=== PATIENT | male | born 1970 | race Caucasian/White ===

== ENCOUNTER 2021-12-03 13:38 | Observation (INO) | payer OTHER ==
[~2021-12-03] VITALS: Ht 182.8 cm; Wt 184.8 kg
[~2021-12-03 13:38] MED LIST: DIVALPROEX SOD500 MG PO; PERCOCET 325 MG1 TA7 PO
[2021-12-03 13:46] VITALS: BP 165/93
[2021-12-03 20:00] VITALS: BP 162/83
[2021-12-03] MEDS ORDERED: AMLODIPINE BESYL5 MG PO (20:39)
[2021-12-03] MEDS ORDERED: ATENOLOL50 M1 PO (20:39)
[2021-12-03] MEDS ORDERED: VALSARTAN320 MG PO (20:40)
[2021-12-03] MEDS ORDERED: HYDROCHLOROTHIA25 M1 PO (20:40)
[2021-12-03] MEDS ORDERED: CELECOXIB200 M1 PO (20:41)
[2021-12-03] MEDS ORDERED: DIVALPROEX SOD500 M1 PO (20:54)
[2021-12-03 21:20] LABS: BASO % 0.1 % (0.0-1.0); HEMATOCRIT 47.4 % (42.0-52.0); LYMPH % 12.3 % (27.0-41.0); MEAN CELL VOLUME 99.8 fl (80.0-94.0); MEAN CORPUSCULAR HGB 33.7 pg (27.0-31.0); MEAN CORPUSCULAR HGB CONC 33.8 g/dl (33.0-37.0); MEAN PLATELET VOLUME 9.8 fl (9.6-12.3); MONO # 0.1 10*3/uL (0.1-1.0); MONO % 0.7 % (3.0-9.0); NEUT % 86.7 % (47.0-73.0); PLATELET COUNT AUTOMATED 218 10*3/uL (130-400); RED BLOOD COUNT 4.75 10*6/uL (4.50-5.90); WHITE BLOOD COUNT 8.1 10*3/uL (4.8-10.8)
[2021-12-03 21:33] LABS: BUN 5 mg/dl (7-24); CHLORIDE 100 mmol/L (98-107); CREATININE 0.84 mg/dL (0.70-1.30); POTASSIUM 4.2 mmol/L (3.5-5.1); SODIUM 134 mmol/L (136-145)
[2021-12-04] VITALS: BP 155/79
[2021-12-04 05:08] LABS: ALKALINE PHOSPHATASE 63 U/L (45-117); BUN 8 mg/dl (7-24); CHLORIDE 101 mmol/L (98-107); CHOLESTEROL 148 mg/dL (<200); CREATININE 0.84 mg/dL (0.70-1.30); POTASSIUM 4.2 mmol/L (3.5-5.1); SGOT/AST 25 IU/L (3-35); SGPT/ALT 43 U/L (12-78); SODIUM 138 mmol/L (136-145); TOTAL PROTEIN 7.4 gm/dL (6.4-8.2)
[2021-12-04 05:09] LABS: FREE T4 1.08 ng/dl (0.76-1.46)
[2021-12-04 05:14] LABS: LDL CHOLESTEROL 66 mg/dL (9-159); THYROID STIM HORMONE (HS) 0.693 uIU/ml (0.358-4.75); TRIGLYCERIDES 75 mg/dl (<150)
[2021-12-04 06:33] LABS: BASO % 0.1 % (0.0-1.0); HEMATOCRIT 46.1 % (42.0-52.0); LYMPH # 1.5 10*3/uL (1.3-4.4); LYMPH % 16.2 % (27.0-41.0); MEAN CELL VOLUME 101.3 fl (80.0-94.0); MEAN CORPUSCULAR HGB 34.7 pg (27.0-31.0); MEAN CORPUSCULAR HGB CONC 34.3 g/dl (33.0-37.0); MEAN PLATELET VOLUME 10.7 fl (9.6-12.3); MONO # 0.2 10*3/uL (0.1-1.0); MONO % 2.5 % (3.0-9.0); NEUT # 7.4 10*3/uL (2.3-7.9); NEUT % 80.9 % (47.0-73.0); PLATELET COUNT AUTOMATED 227 10*3/uL (130-400); RED BLOOD COUNT 4.55 10*6/uL (4.50-5.90); RED CELL DISTRI WIDTH 13.1 % (0-14.5); WHITE BLOOD COUNT 9.1 10*3/uL (4.8-10.8)
[2021-12-04 08:45] LABS: VITAMIN D, 25-HYDROXY 29.1 ng/mL (30-100)
[2021-12-04 16:30] VITALS: BP 151/85
[2021-12-04 20:00] VITALS: BP 130/79
[2021-12-05] VITALS (8 sets, daily range): BP systolic 106–195; BP diastolic 67–112
[2021-12-05] MEDS ORDERED: PREDNISONE10 MG PO (11:41)
[2021-12-05] MEDS ORDERED: CYCLOBENZAPRINE10 MG PO (11:41)
== END 2021-12-05 13:25 | disposition home or self-care (01) ==
LOC: ED 13:38 → 4E 20:51 → EDHOLD 20:51 → 4E 12-04 13:47
PROVIDERS: Internal Medicine; Physician Assistant; ADMIT Family Medicine; ATTEND Family Medicine
DX: M16.11 Unilateral primary osteoarthritis, right hip (principal); M54.41 Lumbago with sciatica, right side; M48.061 Spinal stenosis, lumbar region without neurogenic claudication; Z20.822 Contact with and (suspected) exposure to COVID-19; M16.51 Unilateral post-traumatic osteoarthritis, right hip; E87.1 Hypo-osmolality and hyponatremia; R73.9 Hyperglycemia, unspecified; F31.9 Bipolar disorder, unspecified; I10 Essential (primary) hypertension; R73.03 Prediabetes; D75.89 Other specified diseases of blood and blood-forming organs; Z79.899 Other long term (current) drug therapy